=== PATIENT | male | born 1950 | race Caucasian/White ===

== ENCOUNTER 2017-01-09 21:13 | Emergency (ER) | payer MEDICARE ==
[~2017-01-09 21:13] MED LIST: ACETAMINOPHEN325 M1 PO; ACETAMINOPHEN500 M1 PO; BACITRACIN ZIN120 GM TP; BACLOFEN10 M1 PO; BACTRIM DS TAB1 EACH PO; BACTROBAN TP; BISCOLAX10 MG PR; CEPHALEXIN500 M PO; CIPRO500 M1 PO; CIPRO500 MG PO; COLACE100 M1 PO; DARVOCET-N 1001 EA PO; DEBROX OT; DEBROX15 ML OT; DITROPAN XL5 M1 PO; DITROPAN5 MG PO; DOXEPIN HCL10 M1 PO; DUONEB 2.5-0.5 M3 ML IH; GENEBS325 MG PO; GUA PO; GUAIFENESIN400 M1 PO; GUAIFENESIN400 MG PO; HALDOL JT; HALOPERIDOL2 MG PO; IPRAT-ALBUT 0.5-3 ML INH; KLONOPIN0.5 MG PO; KLONOPIN1 M1 PO; KLONOPIN1 MG PO; LASIX40 M1 PO; LEVAQUIN500 MG PO; LEVAQUIN750 MG PO; LOVENOX40 MG/0.4 SQ; MAPAP325 M1 PO; METHENAMINE HIPP1 G1 PO; MINOCYCLINE HC100 MG PO; MIRALAX17 G2 PO; MUCINEX600 MG PO; MULTIVITAMIN1 TAB PO; MULTIVITAMINS1 EAC7 PO; NYSTATIN; NYSTOP60 GM TP; OMEPRAZOLE20 M3 PO; OXYBUTYNIN CHLOR5 M2 PO; PAROXETINE HCL20 MG PO; PAXIL20 MG PO; PAXIL40 M1 PO; POTASSIUM CHLO10 ME2 PO; PREDNISONE20 MG PO; PROAIR HFA8.5 GM INH; PROTONIX40 MG PO; PROVENTIL HFA6.7 GM IH; SYMBICORT 160-1 PUFF INH; TEGRETOL XR200 M1 PO; TEGRETOL200 MG PO; TYLENOL EXTRA500 MG PO; TYLENOL PM EX-S1 TAB PO; TYLENOL325 M2 PO; VITAMIN C1000 MG PO; VITAMIN C500 M3 PO; [UNRECOGNIZED DRUG - CODE] PO
[2017-01-09] MEDS ORDERED: MUPIROCIN22 G2 TOP (21:56)
[2017-01-09] MEDS ORDERED: DEBROX15 M1 OT (22:08)
[2017-01-09 22:21] LABS: BASO % 0.2 % (0-2); EOS % 2.5 % (0-7); EOSINOPHIL ABSOLUTE COUNT 0.2 tho/cmm (0.0-0.7); IMMATURE GRANULOCYTES ABSOLUTE 0.03 tho/cmm (0-0.03); IMMATURE GRANULOCYTES PERCENT 0.3 % (0-0.3); LYMPH % 12.9 % (20-45); LYMPH ABSOLUTE COUNT 1.2 tho/cmm (0.8-4.5); MCH (MEAN CORPUSCULAR HGB) 30.9 pg (28.0-32.0); MCHC MEAN CORPUSCULAR HGB CONC 34.1 % (32.0-36.0); MCV (MEAN CELL VOLUME) 90.7 fl (82.0-96.0); MEAN PLATELET VOLUME 9.8 cmc (9.4-12.4); MONO % 9.3 % (0-12); MONOCYTE ABSOLUTE COUNT 0.9 tho/cmm (0.0-1.2); NEUTROPHIL ABSOLUTE COUNT 7.2 tho/cmm (1.6-8.0); NEUTROPHIL-AUTOMATED 7.2 tho/cmm (1.6-8.0); NEUTROPHILS % 74.8 % (40-80); PLATELET COUNT 300 tho/cmm (150-450); RED BLOOD COUNT 4.85 mil/cmm (4.40-5.70); RED CELL DISTRIBUTION WIDTH 14.1 % (12.4-16.4); WHITE BLOOD COUNT 9.6 tho/cmm (4.0-10.0)
[2017-01-09 22:30] LABS: ANION GAP 12 mmol/L (0-20); BLOOD UREA NITROGEN 11 mg/dl (6-24); CALCIUM 8.5 mg/dl (8.5-10.5); CARBON DIOXIDE-VENOUS 25 mmol/L (22-32); CHLORIDE 102 mmol/l (96-110); CREATININE 0.26 mg/dl (0.60-1.30); GLUCOSE 126 mg/dL (70-110); SODIUM 135 mmol/L (135-145); eGFR VALUE FOR BLACK >90 mL/Min
[2017-01-09 22:32] LABS: POTASSIUM 4.3 mmol/L (3.7-5.1)
[2017-01-09] MEDS ORDERED: ACETAMINOPHEN325 M2 PO (22:33)
[2017-01-09] MEDS ORDERED: VITAMIN C WITH500 M2 PO (22:35)
[2017-01-09] MEDS ORDERED: VITAMIN D350000 UNI1 PO (22:37)
== END 2017-01-09 23:55 ==
LOC: EDMED 21:13
PROVIDERS: Emergency Medicine
DX: I10 Essential (primary) hypertension (principal); R06.00 Dyspnea, unspecified; J44.9 Chronic obstructive pulmonary disease, unspecified; K21.9 Gastro-esophageal reflux disease without esophagitis; Z79.51 Long term (current) use of inhaled steroids; Z79.899 Other long term (current) drug therapy

== ENCOUNTER 2017-01-28 09:47 | Inpatient (IN) | payer MEDICARE, OTHER ==
[~2017-01-28 09:47] MED LIST changes: +ACETAMINOPHEN325 M2 PO; +DEBROX15 M1 OT; +MUPIROCIN22 G2 TOP; +VITAMIN C WITH500 M2 PO; +VITAMIN D350000 UNI1 PO
[2017-01-28] MEDS ORDERED: CLINDAMYCIN HC150 M1 PO (10:35)
[2017-01-28] MEDS ORDERED: VITAMIN C500 M3 PO (10:40)
[2017-01-28] MEDS ORDERED: GUAIFENESIN400 M1 PO (10:41)
[2017-01-28] MEDS ORDERED: IPRAT-ALBUT 0.5-3 ML INH (10:41)
[2017-01-28 10:42] LABS: BASO % 0.1 % (0-2); HCT-HEMATOCRIT 44.8 % (36.0-53.5); HGB-HEMOGLOBIN 15.4 gm/dl (13.5-17.0); IMMATURE GRANULOCYTES ABSOLUTE 0.05 tho/cmm (0-0.03); IMMATURE GRANULOCYTES PERCENT 0.3 % (0-0.3); LYMPH % 4.3 % (20-45); LYMPH ABSOLUTE COUNT 0.7 tho/cmm (0.8-4.5); MCH (MEAN CORPUSCULAR HGB) 30.9 pg (28.0-32.0); MCHC MEAN CORPUSCULAR HGB CONC 34.4 % (32.0-36.0); MONO % 9.8 % (0-12); MONOCYTE ABSOLUTE COUNT 1.5 tho/cmm (0.0-1.2); NEUTROPHIL ABSOLUTE COUNT 13.2 tho/cmm (1.6-8.0); NEUTROPHIL-AUTOMATED 13.2 tho/cmm (1.6-8.0); NEUTROPHILS % 85.5 % (40-80); PLATELET COUNT 360 tho/cmm (150-450); RED BLOOD COUNT 4.98 mil/cmm (4.40-5.70); RED CELL DISTRIBUTION WIDTH 14.3 % (12.4-16.4); WHITE BLOOD COUNT 15.5 tho/cmm (4.0-10.0)
[2017-01-28] MEDS ORDERED: KLONOPIN1 M1 PO (10:42)
[2017-01-28] MEDS ORDERED: HIPREX1 GM PO (10:42)
[2017-01-28] MEDS ORDERED: SYMBICORT 160-1 PUFF INH (10:42)
[2017-01-28] MEDS ORDERED: VITAMIN D350000 UNI1 PO (10:43)
[2017-01-28] MEDS ORDERED: TYLENOL325 M2 PO ×2 (10:44→10:51)
[2017-01-28 10:45] LABS: INR 1.2 INR (0.9-1.1); PROTHROMBIN TIME 13.7 SECONDS (9.0-13.6)
[2017-01-28] MEDS ORDERED: BACITRACIN ZIN1 EAC1 TOP (10:45)
[2017-01-28] MEDS ORDERED: MUPIROCIN22 G2 TOP (10:45)
[2017-01-28] MEDS ORDERED: BISCOLAX10 MG MC (10:47)
[2017-01-28] MEDS ORDERED: SENNA-DOCUSATE1 EAC1 PO (10:48)
[2017-01-28] MEDS ORDERED: DEBROX15 M1 OT (10:49)
[2017-01-28] MEDS ORDERED: PROAIR HFA8.5 GM INH (10:50)
[2017-01-28] MEDS ORDERED: NYSTOP60 GM TOP (10:50)
[2017-01-28] MEDS ORDERED: BACLOFEN10 M1 PO (10:51)
[2017-01-28] MEDS ORDERED: LASIX40 M1 PO (10:52)
[2017-01-28] MEDS ORDERED: DOXEPIN HCL10 M1 PO (10:52)
[2017-01-28] MEDS ORDERED: TEGRETOL200 M1 PO (10:52)
[2017-01-28] MEDS ORDERED: MULTIVITAMINS1 EAC6 PO (10:52)
[2017-01-28] MEDS ORDERED: OXYBUTYNIN CHLOR5 M2 PO (10:52)
[2017-01-28] MEDS ORDERED: OMEPRAZOLE20 M4 PO (10:52)
[2017-01-28] MEDS ORDERED: POTASSIUM CHLO10 ME2 PO (10:53)
[2017-01-28] MEDS ORDERED: PAXIL40 M1 PO (10:53)
[2017-01-28 11:03] LABS: URINE APPEARANCE HAZY; URINE COLOR YELLOW
[2017-01-28 11:04] LABS: URINE BILIRUBIN NEGATIVE (NEG); URINE BLOOD LARGE (NEG); URINE GLUCOSE (UA) NEGATIVE (NEG); URINE KETONE LARGE (NEG); URINE LEUKOCYTE ESTERASE POSITIVE (NEG); URINE NITRITE POSITIVE (NEG); URINE PROTEIN POSITIVE (NEG)
[2017-01-28 11:11] LABS: URINE WBC 15-20 /[HPF] (0-5)
[2017-01-28 11:12] LABS: ABG CO2 ARTERIAL 26 mmol/L (21-27); ARTERIAL BLD GAS O2 SATURATION 89 % (95-98); ARTERIAL BLOOD GAS PCO2 38 mmHg (32-45); ARTERIAL PO2 56 mmHg (70-100); BICARBONATE 25 mmol/L (21-28); BLOOD GAS BASE EXCESS 1 mM/L (-/+3); PH 7.43 Units (7.35-7.45)
[2017-01-28 11:12] LABS: URINE EPITHELIAL CELLS 0 /[HPF] (0-10)
[2017-01-28 11:13] LABS: URINE BACTERIA 3+; URINE MUCUS 1+; URINE OTHER VOLUME 1 ML
[2017-01-28 11:35] LABS: ALB/GLOB RATIO 0.7 (0.8-2.0); ALBUMIN 3.5 g/dl (3.5-5.0); ALKALINE PHOSPHATASE 102 U/L (33-138); ALT/SGPT 15 U/L (12-78); ANION GAP 14 mmol/L (0-20); AST/SGOT 10 U/L (10-40); BILIRUBIN,TOTAL 0.7 mg/dl (0.0-1.5); BLOOD UREA NITROGEN 8 mg/dl (6-24); CALCIUM 8.9 mg/dl (8.5-10.5); CARBON DIOXIDE-VENOUS 26 mmol/L (22-32); CHLORIDE 99 mmol/l (96-110); CREATININE 0.26 mg/dl (0.60-1.30); GLUCOSE 127 mg/dL (70-110); POTASSIUM 3.7 mmol/L (3.7-5.1); eGFR VALUE FOR BLACK >90 mL/Min
[2017-01-28 11:39] LABS: SODIUM 135 mmol/L (135-145)
[2017-01-28 15:06] LABS: ABG CO2 ARTERIAL 24 mmol/L (21-27); ARTERIAL BLD GAS O2 SATURATION 92 % (95-98); ARTERIAL BLOOD GAS PCO2 34 mmHg (32-45); ARTERIAL PO2 61 mmHg (70-100); BICARBONATE 23 mmol/L (21-28); BLOOD GAS BASE EXCESS 0 mM/L (-/+3); PH 7.45 Units (7.35-7.45)
--- NOTE | 2017-01-28 17:30 | NUR ---
TYLENOL 650 MG RI GIVEN VIA COLOSTOMY FOR TEMP OF 100.7 CHANGED COLOSTOMY BAG. ENDO NURSES TO ROOM FOR BRONCH AT BEDSIDE.
[2017-01-28 20:02] LABS: PROCALCITONIN 0.07 ng/ml (0.05-0.09)
[2017-01-29 08:29] LABS: ABG CO2 ARTERIAL 24 mmol/L (21-27); ARTERIAL BLD GAS O2 SATURATION 97 % (95-98); ARTERIAL BLOOD GAS PCO2 51 mmHg (32-45); ARTERIAL PO2 112 mmHg (70-100); BICARBONATE 23 mmol/L (21-28); BLOOD GAS BASE EXCESS -4 mM/L (-/+3); PH 7.27 Units (7.35-7.45)
[2017-01-29 10:07] LABS: BASO % 0.1 % (0-2); HCT-HEMATOCRIT 40.2 % (36.0-53.5); HGB-HEMOGLOBIN 13.5 gm/dl (13.5-17.0); IMMATURE GRANULOCYTES ABSOLUTE 0.12 tho/cmm (0-0.03); IMMATURE GRANULOCYTES PERCENT 0.8 % (0-0.3); LYMPH % 2.9 % (20-45); LYMPH ABSOLUTE COUNT 0.5 tho/cmm (0.8-4.5); MCH (MEAN CORPUSCULAR HGB) 30.5 pg (28.0-32.0); MCHC MEAN CORPUSCULAR HGB CONC 33.6 % (32.0-36.0); MEAN PLATELET VOLUME 9.8 cmc (9.4-12.4); MONO % 6.4 % (0-12); NEUTROPHIL ABSOLUTE COUNT 14.1 tho/cmm (1.6-8.0); NEUTROPHIL-AUTOMATED 14.1 tho/cmm (1.6-8.0); NEUTROPHILS % 89.8 % (40-80); PLATELET COUNT 344 tho/cmm (150-450); RED BLOOD COUNT 4.42 mil/cmm (4.40-5.70); RED CELL DISTRIBUTION WIDTH 14.3 % (12.4-16.4); WHITE BLOOD COUNT 15.7 tho/cmm (4.0-10.0)
[2017-01-29 10:16] LABS: ANION GAP 16 mmol/L (0-20); BLOOD UREA NITROGEN 6 mg/dl (6-24); CARBON DIOXIDE-VENOUS 21 mmol/L (22-32); CHLORIDE 106 mmol/l (96-110); GLUCOSE 126 mg/dL (70-110); POTASSIUM 3.4 mmol/L (3.7-5.1); SODIUM 140 mmol/L (135-145)
[2017-01-29 10:21] LABS: CREATININE <0.20 mg/dl (0.60-1.30); eGFR VALUE FOR BLACK >90 mL/Min
[2017-01-30 04:52] LABS: ABG CO2 ARTERIAL 26 mmol/L (21-27); ARTERIAL BLD GAS O2 SATURATION 98 % (95-98); ARTERIAL PO2 103 mmHg (70-100); BICARBONATE 24 mmol/L (21-28); BLOOD GAS BASE EXCESS 0 mM/L (-/+3)
[2017-01-30 04:53] LABS: ARTERIAL BLOOD GAS PCO2 40 mmHg (32-45)
[2017-01-30 08:35] LABS: BASO % 0.4 % (0-2); BASO ABSOLUTE COUNT 0.1 tho/cmm (0.0-0.2); EOS % 0.1 % (0-7); HCT-HEMATOCRIT 43.7 % (36.0-53.5); IMMATURE GRANULOCYTES PERCENT 1.6 % (0-0.3); LYMPH % 7.7 % (20-45); MCHC MEAN CORPUSCULAR HGB CONC 34.3 % (32.0-36.0); MCV (MEAN CELL VOLUME) 90.3 fl (82.0-96.0); MEAN PLATELET VOLUME 9.9 cmc (9.4-12.4); MONO % 4.8 % (0-12); MONOCYTE ABSOLUTE COUNT 0.6 tho/cmm (0.0-1.2); NEUTROPHIL ABSOLUTE COUNT 10.6 tho/cmm (1.6-8.0); NEUTROPHIL-AUTOMATED 10.6 tho/cmm (1.6-8.0); NEUTROPHILS % 85.4 % (40-80); PLATELET COUNT 394 tho/cmm (150-450); RED BLOOD COUNT 4.84 mil/cmm (4.40-5.70); WHITE BLOOD COUNT 12.4 tho/cmm (4.0-10.0)
[2017-01-30 08:56] LABS: BLOOD UREA NITROGEN 10 mg/dl (6-24); CALCIUM 8.5 mg/dl (8.5-10.5); CARBON DIOXIDE-VENOUS 23 mmol/L (22-32); CHLORIDE 105 mmol/l (96-110); GLUCOSE 129 mg/dL (70-110); SODIUM 142 mmol/L (135-145)
[2017-01-30 09:03] LABS: ANION GAP 18 mmol/L (0-20); CREATININE <0.20 mg/dl (0.60-1.30); eGFR VALUE FOR BLACK >90 mL/Min
[2017-01-31 03:54] LABS: BASO % 0.1 % (0-2); HCT-HEMATOCRIT 43.4 % (36.0-53.5); HGB-HEMOGLOBIN 14.3 gm/dl (13.5-17.0); IMMATURE GRANULOCYTES ABSOLUTE 0.04 tho/cmm (0-0.03); IMMATURE GRANULOCYTES PERCENT 0.4 % (0-0.3); LYMPH % 6.8 % (20-45); LYMPH ABSOLUTE COUNT 0.7 tho/cmm (0.8-4.5); MCH (MEAN CORPUSCULAR HGB) 30.2 pg (28.0-32.0); MCHC MEAN CORPUSCULAR HGB CONC 32.9 % (32.0-36.0); MCV (MEAN CELL VOLUME) 91.6 fl (82.0-96.0); MEAN PLATELET VOLUME 9.7 cmc (9.4-12.4); MONO % 9.5 % (0-12); MONOCYTE ABSOLUTE COUNT 0.9 tho/cmm (0.0-1.2); NEUTROPHIL ABSOLUTE COUNT 8.1 tho/cmm (1.6-8.0); NEUTROPHIL-AUTOMATED 8.1 tho/cmm (1.6-8.0); NEUTROPHILS % 83.2 % (40-80); PLATELET COUNT 414 tho/cmm (150-450); RED BLOOD COUNT 4.74 mil/cmm (4.40-5.70); RED CELL DISTRIBUTION WIDTH 13.9 % (12.4-16.4); WHITE BLOOD COUNT 9.7 tho/cmm (4.0-10.0)
[2017-01-31 04:08] LABS: BLOOD UREA NITROGEN 9 mg/dl (6-24); CALCIUM 8.6 mg/dl (8.5-10.5); CARBON DIOXIDE-VENOUS 27 mmol/L (22-32); CREATININE 0.23 mg/dl (0.60-1.30); GLUCOSE 127 mg/dL (70-110); MAGNESIUM 2.2 mg/dl (1.8-2.6); eGFR VALUE FOR BLACK >90 mL/Min
[2017-01-31 04:25] LABS: ABG CO2 ARTERIAL 26 mmol/L (21-27); ARTERIAL BLD GAS O2 SATURATION 94 % (95-98); ARTERIAL BLOOD GAS PCO2 38 mmHg (32-45); ARTERIAL PO2 66 mmHg (70-100); BICARBONATE 25 mmol/L (21-28); BLOOD GAS BASE EXCESS 2 mM/L (-/+3); PH 7.44 Units (7.35-7.45)
[2017-01-31 05:20] LABS: ANION GAP 16 mmol/L (0-20); CHLORIDE 105 mmol/l (96-110); SODIUM 145 mmol/L (135-145)
[2017-01-31 05:28] LABS: POTASSIUM 2.8 mmol/L (3.7-5.1)
[2017-02-01 04:14] LABS: HCT-HEMATOCRIT 44.1 % (36.0-53.5); HGB-HEMOGLOBIN 14.9 gm/dl (13.5-17.0); IMMATURE GRANULOCYTES ABSOLUTE 0.01 tho/cmm (0-0.03); IMMATURE GRANULOCYTES PERCENT 0.1 % (0-0.3); LYMPH % 12.1 % (20-45); LYMPH ABSOLUTE COUNT 0.9 tho/cmm (0.8-4.5); MCH (MEAN CORPUSCULAR HGB) 30.7 pg (28.0-32.0); MCHC MEAN CORPUSCULAR HGB CONC 33.8 % (32.0-36.0); MCV (MEAN CELL VOLUME) 90.7 fl (82.0-96.0); MEAN PLATELET VOLUME 9.4 cmc (9.4-12.4); MONO % 4.7 % (0-12); MONOCYTE ABSOLUTE COUNT 0.4 tho/cmm (0.0-1.2); NEUTROPHIL ABSOLUTE COUNT 6.2 tho/cmm (1.6-8.0); NEUTROPHIL-AUTOMATED 6.2 tho/cmm (1.6-8.0); NEUTROPHILS % 83.1 % (40-80); PLATELET COUNT 399 tho/cmm (150-450); RED BLOOD COUNT 4.86 mil/cmm (4.40-5.70); RED CELL DISTRIBUTION WIDTH 13.9 % (12.4-16.4); WHITE BLOOD COUNT 7.5 tho/cmm (4.0-10.0)
[2017-02-01 04:20] LABS: ARTERIAL BLD GAS O2 SATURATION 95 % (95-98); ARTERIAL BLOOD GAS PCO2 38 mmHg (32-45); ARTERIAL PO2 61 mmHg (70-100); BLOOD GAS BASE EXCESS 9 mM/L (-/+3); PH 7.54 Units (7.35-7.45)
[2017-02-01 04:21] LABS: ABG CO2 ARTERIAL 34 mmol/L (21-27); BICARBONATE 32 mmol/L (21-28)
[2017-02-01 04:33] LABS: ANION GAP 11 mmol/L (0-20); BLOOD UREA NITROGEN 14 mg/dl (6-24); CALCIUM 8.7 mg/dl (8.5-10.5); CARBON DIOXIDE-VENOUS 33 mmol/L (22-32); CHLORIDE 105 mmol/l (96-110); MAGNESIUM 2.2 mg/dl (1.8-2.6); POTASSIUM 3.7 mmol/L (3.7-5.1); SODIUM 145 mmol/L (135-145); eGFR VALUE FOR BLACK >90 mL/Min
[2017-02-01 04:38] LABS: CREATININE 0.44 mg/dl (0.60-1.30); GLUCOSE 205 mg/dL (70-110)
[2017-02-02 04:25] LABS: HCT-HEMATOCRIT 46.9 % (36.0-53.5); HGB-HEMOGLOBIN 15.4 gm/dl (13.5-17.0); IMMATURE GRANULOCYTES ABSOLUTE 0.02 tho/cmm (0-0.03); IMMATURE GRANULOCYTES PERCENT 0.2 % (0-0.3); LYMPH % 8.6 % (20-45); LYMPH ABSOLUTE COUNT 0.7 tho/cmm (0.8-4.5); MCH (MEAN CORPUSCULAR HGB) 30.5 pg (28.0-32.0); MCHC MEAN CORPUSCULAR HGB CONC 32.8 % (32.0-36.0); MCV (MEAN CELL VOLUME) 92.9 fl (82.0-96.0); MEAN PLATELET VOLUME 9.7 cmc (9.4-12.4); MONO % 8.8 % (0-12); MONOCYTE ABSOLUTE COUNT 0.7 tho/cmm (0.0-1.2); NEUTROPHIL ABSOLUTE COUNT 6.6 tho/cmm (1.6-8.0); NEUTROPHIL-AUTOMATED 6.6 tho/cmm (1.6-8.0); NEUTROPHILS % 82.4 % (40-80); PLATELET COUNT 379 tho/cmm (150-450); RED BLOOD COUNT 5.05 mil/cmm (4.40-5.70); RED CELL DISTRIBUTION WIDTH 14.1 % (12.4-16.4)
[2017-02-02 04:50] LABS: ANION GAP 10 mmol/L (0-20); BLOOD UREA NITROGEN 15 mg/dl (6-24); CALCIUM 8.7 mg/dl (8.5-10.5); CARBON DIOXIDE-VENOUS 34 mmol/L (22-32); CHLORIDE 101 mmol/l (96-110); GLUCOSE 164 mg/dL (70-110); POTASSIUM 4.3 mmol/L (3.7-5.1); SODIUM 141 mmol/L (135-145); eGFR VALUE FOR BLACK >90 mL/Min
[2017-02-02 05:09] LABS: CREATININE 0.21 mg/dl (0.60-1.30)
[2017-02-03 05:30] LABS: BLOOD UREA NITROGEN 14 mg/dl (6-24); CALCIUM 8.7 mg/dl (8.5-10.5); CARBON DIOXIDE-VENOUS 33 mmol/L (22-32); CHLORIDE 97 mmol/l (96-110); GLUCOSE 151 mg/dL (70-110); SODIUM 138 mmol/L (135-145)
[2017-02-03 05:31] LABS: BASO % 0.1 % (0-2); HCT-HEMATOCRIT 47.7 % (36.0-53.5); HGB-HEMOGLOBIN 15.9 gm/dl (13.5-17.0); IMMATURE GRANULOCYTES ABSOLUTE 0.05 tho/cmm (0-0.03); IMMATURE GRANULOCYTES PERCENT 0.5 % (0-0.3); LYMPH % 11.9 % (20-45); LYMPH ABSOLUTE COUNT 1.2 tho/cmm (0.8-4.5); MCH (MEAN CORPUSCULAR HGB) 30.5 pg (28.0-32.0); MCHC MEAN CORPUSCULAR HGB CONC 33.3 % (32.0-36.0); MCV (MEAN CELL VOLUME) 91.4 fl (82.0-96.0); MEAN PLATELET VOLUME 9.8 cmc (9.4-12.4); MONO % 7.1 % (0-12); MONOCYTE ABSOLUTE COUNT 0.7 tho/cmm (0.0-1.2); NEUTROPHIL ABSOLUTE COUNT 8.4 tho/cmm (1.6-8.0); NEUTROPHIL-AUTOMATED 8.4 tho/cmm (1.6-8.0); NEUTROPHILS % 80.4 % (40-80); PLATELET COUNT 352 tho/cmm (150-450); RED BLOOD COUNT 5.22 mil/cmm (4.40-5.70); RED CELL DISTRIBUTION WIDTH 13.7 % (12.4-16.4); WHITE BLOOD COUNT 10.4 tho/cmm (4.0-10.0)
[2017-02-03 05:33] LABS: ANION GAP 12 mmol/L (0-20); MAGNESIUM 2.4 mg/dl (1.8-2.6)
[2017-02-03 08:39] LABS: CREATININE <0.20 mg/dl (0.60-1.30)
[2017-02-04 08:50] LABS: HCT-HEMATOCRIT 49.1 % (36.0-53.5); HGB-HEMOGLOBIN 16.6 gm/dl (13.5-17.0); IMMATURE GRANULOCYTES ABSOLUTE 0.05 tho/cmm (0-0.03); IMMATURE GRANULOCYTES PERCENT 0.5 % (0-0.3); LYMPH % 5.2 % (20-45); LYMPH ABSOLUTE COUNT 0.5 tho/cmm (0.8-4.5); MCH (MEAN CORPUSCULAR HGB) 30.7 pg (28.0-32.0); MCHC MEAN CORPUSCULAR HGB CONC 33.8 % (32.0-36.0); MCV (MEAN CELL VOLUME) 90.8 fl (82.0-96.0); MONOCYTE ABSOLUTE COUNT 0.4 tho/cmm (0.0-1.2); NEUTROPHIL ABSOLUTE COUNT 9.3 tho/cmm (1.6-8.0); NEUTROPHIL-AUTOMATED 9.3 tho/cmm (1.6-8.0); NEUTROPHILS % 90.3 % (40-80); PLATELET COUNT 309 tho/cmm (150-450); RED BLOOD COUNT 5.41 mil/cmm (4.40-5.70); RED CELL DISTRIBUTION WIDTH 13.7 % (12.4-16.4); WHITE BLOOD COUNT 10.2 tho/cmm (4.0-10.0)
[2017-02-04 09:00] LABS: ANION GAP 13 mmol/L (0-20); BLOOD UREA NITROGEN 19 mg/dl (6-24); CALCIUM 8.7 mg/dl (8.5-10.5); CARBON DIOXIDE-VENOUS 31 mmol/L (22-32); CHLORIDE 100 mmol/l (96-110); CREATININE 0.24 mg/dl (0.60-1.30); GLUCOSE 184 mg/dL (70-110); MAGNESIUM 2.3 mg/dl (1.8-2.6); POTASSIUM 4.4 mmol/L (3.7-5.1); SODIUM 140 mmol/L (135-145); eGFR VALUE FOR BLACK >90 mL/Min
[2017-02-05 04:47] LABS: HCT-HEMATOCRIT 49.6 % (36.0-53.5); HGB-HEMOGLOBIN 16.5 gm/dl (13.5-17.0); IMMATURE GRANULOCYTES ABSOLUTE 0.04 tho/cmm (0-0.03); IMMATURE GRANULOCYTES PERCENT 0.5 % (0-0.3); LYMPH % 7.2 % (20-45); LYMPH ABSOLUTE COUNT 0.6 tho/cmm (0.8-4.5); MCH (MEAN CORPUSCULAR HGB) 30.2 pg (28.0-32.0); MCHC MEAN CORPUSCULAR HGB CONC 33.3 % (32.0-36.0); MCV (MEAN CELL VOLUME) 90.8 fl (82.0-96.0); MEAN PLATELET VOLUME 10.3 cmc (9.4-12.4); MONO % 7.1 % (0-12); MONOCYTE ABSOLUTE COUNT 0.6 tho/cmm (0.0-1.2); NEUTROPHIL ABSOLUTE COUNT 6.9 tho/cmm (1.6-8.0); NEUTROPHIL-AUTOMATED 6.9 tho/cmm (1.6-8.0); NEUTROPHILS % 85.2 % (40-80); PLATELET COUNT 312 tho/cmm (150-450); RED BLOOD COUNT 5.46 mil/cmm (4.40-5.70); RED CELL DISTRIBUTION WIDTH 13.9 % (12.4-16.4); WHITE BLOOD COUNT 8.2 tho/cmm (4.0-10.0)
[2017-02-05 04:56] LABS: ANION GAP 13 mmol/L (0-20); BLOOD UREA NITROGEN 18 mg/dl (6-24); CALCIUM 8.1 mg/dl (8.5-10.5); CARBON DIOXIDE-VENOUS 30 mmol/L (22-32); CHLORIDE 99 mmol/l (96-110); GLUCOSE 133 mg/dL (70-110); MAGNESIUM 2.4 mg/dl (1.8-2.6); POTASSIUM 4.2 mmol/L (3.7-5.1); SODIUM 138 mmol/L (135-145)
[2017-02-05 05:29] LABS: CREATININE <0.20 mg/dl (0.60-1.30); eGFR VALUE FOR BLACK >90 mL/Min
[2017-02-07 05:46] LABS: HCT-HEMATOCRIT 49.4 % (36.0-53.5); HGB-HEMOGLOBIN 16.4 gm/dl (13.5-17.0); IMMATURE GRANULOCYTES ABSOLUTE 0.05 tho/cmm (0-0.03); IMMATURE GRANULOCYTES PERCENT 0.5 % (0-0.3); LYMPH ABSOLUTE COUNT 0.5 tho/cmm (0.8-4.5); MCH (MEAN CORPUSCULAR HGB) 30.2 pg (28.0-32.0); MCHC MEAN CORPUSCULAR HGB CONC 33.2 % (32.0-36.0); MEAN PLATELET VOLUME 10.7 cmc (9.4-12.4); MONOCYTE ABSOLUTE COUNT 0.6 tho/cmm (0.0-1.2); NEUTROPHIL ABSOLUTE COUNT 9.5 tho/cmm (1.6-8.0); NEUTROPHIL-AUTOMATED 9.5 tho/cmm (1.6-8.0); NEUTROPHILS % 88.5 % (40-80); PLATELET COUNT 258 tho/cmm (150-450); RED BLOOD COUNT 5.43 mil/cmm (4.40-5.70); WHITE BLOOD COUNT 10.7 tho/cmm (4.0-10.0)
[2017-02-07 06:14] LABS: ANION GAP 12 mmol/L (0-20); BLOOD UREA NITROGEN 19 mg/dl (6-24); CALCIUM 8.1 mg/dl (8.5-10.5); CARBON DIOXIDE-VENOUS 30 mmol/L (22-32); CHLORIDE 104 mmol/l (96-110); GLUCOSE 144 mg/dL (70-110); MAGNESIUM 2.4 mg/dl (1.8-2.6); POTASSIUM 4.5 mmol/L (3.7-5.1); SODIUM 141 mmol/L (135-145)
[2017-02-07 06:32] LABS: CREATININE <0.20 mg/dl (0.60-1.30)
[2017-02-08 04:06] LABS: ANION GAP 11 mmol/L (0-20); BLOOD UREA NITROGEN 16 mg/dl (6-24); CARBON DIOXIDE-VENOUS 29 mmol/L (22-32); CHLORIDE 101 mmol/l (96-110); GLUCOSE 139 mg/dL (70-110); POTASSIUM 4.4 mmol/L (3.7-5.1); SODIUM 137 mmol/L (135-145)
[2017-02-08 04:07] LABS: CREATININE <0.20 mg/dl (0.60-1.30); eGFR VALUE FOR BLACK >90 mL/Min
[2017-02-10 04:44] LABS: BASO % 0.1 % (0-2); EOS % 0.4 % (0-7); HGB-HEMOGLOBIN 16.9 gm/dl (13.5-17.0); IMMATURE GRANULOCYTES ABSOLUTE 0.05 tho/cmm (0-0.03); IMMATURE GRANULOCYTES PERCENT 0.4 % (0-0.3); LYMPH % 15.4 % (20-45); LYMPH ABSOLUTE COUNT 1.7 tho/cmm (0.8-4.5); MCH (MEAN CORPUSCULAR HGB) 30.6 pg (28.0-32.0); MCHC MEAN CORPUSCULAR HGB CONC 33.8 % (32.0-36.0); MCV (MEAN CELL VOLUME) 90.4 fl (82.0-96.0); MEAN PLATELET VOLUME 11.4 cmc (9.4-12.4); MONO % 16.7 % (0-12); MONOCYTE ABSOLUTE COUNT 1.9 tho/cmm (0.0-1.2); NEUTROPHIL ABSOLUTE COUNT 7.6 tho/cmm (1.6-8.0); NEUTROPHIL-AUTOMATED 7.6 tho/cmm (1.6-8.0); PLATELET COUNT 247 tho/cmm (150-450); RED BLOOD COUNT 5.53 mil/cmm (4.40-5.70); RED CELL DISTRIBUTION WIDTH 13.8 % (12.4-16.4); WHITE BLOOD COUNT 11.3 tho/cmm (4.0-10.0)
[2017-02-10 04:58] LABS: ANION GAP 13 mmol/L (0-20); BLOOD UREA NITROGEN 20 mg/dl (6-24); CALCIUM 8.1 mg/dl (8.5-10.5); CARBON DIOXIDE-VENOUS 29 mmol/L (22-32); CHLORIDE 99 mmol/l (96-110); GLUCOSE 129 mg/dL (70-110); POTASSIUM 3.9 mmol/L (3.7-5.1); SODIUM 137 mmol/L (135-145)
[2017-02-10 05:07] LABS: CREATININE <0.20 mg/dl (0.60-1.30)
[2017-02-10 05:08] LABS: eGFR VALUE FOR BLACK >90 mL/Min
[2017-02-10 05:43] LABS: PROCALCITONIN <0.05 ng/ml (0.05-0.09)
[2017-02-10] MEDS ORDERED: PREDNISONE10 M1 PO (12:33)
== END 2017-02-10 14:33 | disposition home health service (06) | DRG 871 ==
LOC: EDMED 09:47 → EMR2 14:30 → PCUA 15:10 → CCU 01-29 09:30 → PCUB 02-02 06:13
PROVIDERS: Emergency Medicine; Family Medicine; Internal Medicine; Internal Medicine Pulmonary Disease; ADMIT Hospitalist
PROC: 5A09357 Assistance with Respiratory Ventilation, Less than 24 Consecutive Hours, Continuous Positive Airway Pressure (ICD-10-PCS; 2017-01-28)
PROC: 3E0F8GC Introduction of Other Therapeutic Substance into Respiratory Tract, Via Natural or Artificial Opening Endoscopic (ICD-10-PCS; 2017-01-28)
PROC: 0BB68ZX Excision of Right Lower Lobe Bronchus, Via Natural or Artificial Opening Endoscopic, Diagnostic (ICD-10-PCS; 2017-01-28)
PROC: 02HV33Z Insertion of Infusion Device into Superior Vena Cava, Percutaneous Approach (ICD-10-PCS; principal; 2017-01-30)
PROC: 0BBB8ZX Excision of Left Lower Lobe Bronchus, Via Natural or Artificial Opening Endoscopic, Diagnostic (ICD-10-PCS; 2017-01-31)
PROC: 3E1F88Z Irrigation of Respiratory Tract using Irrigating Substance, Via Natural or Artificial Opening Endoscopic (ICD-10-PCS; 2017-02-06)
PROC: 3E1F88Z Irrigation of Respiratory Tract using Irrigating Substance, Via Natural or Artificial Opening Endoscopic (ICD-10-PCS; 2017-02-08)
DX: A41.9 Sepsis, unspecified organism (principal); J18.1 Lobar pneumonia, unspecified organism; J96.02 Acute respiratory failure with hypercapnia; G82.50 Quadriplegia, unspecified; T17.590A Other foreign object in bronchus causing asphyxiation, initial encounter; E46 Unspecified protein-calorie malnutrition; I50.22 Chronic systolic (congestive) heart failure; J96.21 Acute and chronic respiratory failure with hypoxia; R53.81 Other malaise; G35 Multiple sclerosis; N31.9 Neuromuscular dysfunction of bladder, unspecified; K21.9 Gastro-esophageal reflux disease without esophagitis; G47.33 Obstructive sleep apnea (adult) (pediatric); Z66 Do not resuscitate; Z93.3 Colostomy status; F32.9 Major depressive disorder, single episode, unspecified; Z88.0 Allergy status to penicillin; Z88.2 Allergy status to sulfonamides; Z88.1 Allergy status to other antibiotic agents; Z85.828 Personal history of other malignant neoplasm of skin; E87.6 Hypokalemia; Z99.3 Dependence on wheelchair; R13.10 Dysphagia, unspecified
CPT/HCPCS: C1751; C8929; C9113; G0500; J0456; J0696; J1650; J1940; J2020; J2060; J2185; J2250; J2270; J2930; J3010; J3475; J3480; J7030; J7050; J7512; J7999